=== PATIENT | female | born 1985 | race Caucasian/White ===

== ENCOUNTER 2018-02-18 01:23 | Inpatient (IN) | payer OTHER ==
[2018-02-18] MEDS ORDERED: POLYCILLIN/NS 2 GM/100 ML 2 GM/100 ML BAG IV ONE ×2 (01:32→02:00)
[2018-02-18] MEDS ORDERED: LACTATED RINGERS 1,000 ML ONE (01:32)
[2018-02-18] MEDS ORDERED: SUBLIMAZE ONE (01:32)
[2018-02-18] MEDS ORDERED: SUBLIMAZE IV ONE (01:39)
[2018-02-18] MEDS ORDERED: ZOFRAN IV PRN (01:46)
[2018-02-18] MEDS ORDERED: ePHEDrine SULFATE IV PRN (01:46)
[2018-02-18] MEDS ORDERED: XYLOCAINE 2% INFILTRATI ONE (01:46)
[2018-02-18] MEDS ORDERED: BRETHINE SUB-Q PRN (01:46)
[2018-02-18] MEDS ORDERED: BRETHINE IVP PRN (01:46)
[2018-02-18] MEDS ORDERED: MINERAL OIL PO PRN (01:46)
[2018-02-18] MEDS ORDERED: NARCAN 0.4 MG/1 ML IV PRN (01:46)
--- NOTE | 2018-02-18 01:52 | History and Physical Report ---
History of Present Illness Date of examination: 02/18/18 Date of admission: 02/18/18 01:23 Chief complaint: Intense Labor Pain History of present illness: Early entry to care, course complicated by a abnormal pap ( HGSIL), Anemia, Vitamin D Insufficiency, and 1 UTI (treated with Augmentin). 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 Family/Genetic History: hypertension, cancer Social history: no significant social history, single, smoking (occ smoker) - Obstetrical History Expected Date of Delivery: 03/01/18 Actual Gestation: 38 Week(s) 3 Day(s) : 2 Para: 1 Hx # Term Pregnancies: 1 Number of Living Children: 1 #1 Gender: Male year: 2,009 Birthweight: 3.997 kg Method of Delivery: Vaginal Gestational age at delivery: 40 Complications: none Medications and Allergies Allergies Allergy/AdvReac Type Severity Reaction Status Date / Time No Known Allergies Allergy Unverified 02/18/18 01:38 Active Meds: Active Medications Ampicillin Sodium (Polycillin/Ns 2 Gm/100 Ml) 2 gm in 100 mls @ 100 mls/hr IV ONCE ONE; Protocol Stop: 02/18/18 02:59 Review of Systems All systems: negative - Vital Signs Vital signs: Vital Signs Temp Pulse Resp BP Pulse Ox 97.8 F 60 24 131/66 97 02/18/18 01:25 02/18/18 01:25 02/18/18 01:25 02/18/18 01:25 02/18/18 01:25 Temp Pulse Resp BP Pulse Ox 97.8 F 79 24 131/66 94 02/18/18 01:25 02/18/18 01:50 02/18/18 01:25 02/18/18 01:25 02/18/18 01:50 - Physical Exam Breasts: Positive: normal Cardiovascular: Regular rate Lungs: Positive: Clear to auscultation, Normal air movement Abdomen: Positive: normal appearance, soft, normal bowel sounds Genitourinary (Female): Positive: normal external genitalia, normal perenium Vagina: Positive: normal moisture Uterus: Positive: enlarged Anus/Rectum: Positive: normal perianal skin - Obstetrical FHR: category 1 Uterine Contraction Monitor Mode: External Cervical Dilatation: 8.5 (Small amount of clear fluid upon AROM at 0135) Cervical Effacement Percentage: 90 station: +1 Uterine Contraction Frequency (min): 2 Uterine Contraction Pattern: Regular Uterine Tone Measurement Phase: Resting Uterine Contraction Intensity: Strong/Firm Results All other labs normal. Assessment and Plan A: IUP @ 38 3/7 Weeks Category I Tracing Active Labor GBS Positive P: Admit to L&D per Routine Orders GBS Prophylaxis AROM
[2018-02-18] MEDS ORDERED: LACTATED RINGERS 1,000 ML IV SCH (02:00)
[2018-02-18] MEDS ORDERED: PITOCin/NS 20 UNIT/1000ML DRIP 20 UNITS/1,000 ML BAG IV SCH (02:00)
[2018-02-18] MEDS ORDERED: PITOCin/NS 20 UNIT/1000ML DRIP 20,000 MILLIUNITS/1,000 ML BAG IV ONE (02:06)
[2018-02-18] MEDS ORDERED: MINERAL OIL ONE (02:06)
[2018-02-18 02:21] LABS: Hematocrit 34.1 % (30.3-42.9); Hemoglobin 11.6 gm/dl (10.1-14.3); Mean Corpuscular HGB Conc 34 % (30-34); Mean Corpuscular Hemoglobin 27 pg (28-32); Mean Corpuscular Volume 80 fl (79-97); Platelet Count 241 K/mm3 (140-440); Red Blood Count 4.25 M/mm3 (3.65-5.03); Red Cell Distribution Width 14.8 % (13.2-15.2)
[2018-02-18] MEDS ORDERED: NORCO 5/325 PO PRN (02:29)
[2018-02-18] MEDS ORDERED: BENADRYL PO PRN (02:29)
[2018-02-18] MEDS ORDERED: LANSINOH TP PRN (02:29)
--- NOTE | 2018-02-18 02:35 | Procedure Note ---
OB Delivery Note - Delivery Date of Delivery: 02/18/18 (0213) Surgeon: ADOLFO LATIF Estimated blood loss: 200cc - Vaginal Delivery presentation: vertex Delivery position: OA Intrapartum events: none Delivery induction: none Delivery augmentation: rupture of membranes Delivery monitor: external FHT, external uterine Route of delivery: Delivery placenta: spontaneous Delivery cord: 3 umbilical vessels Episiotomy: none Delivery laceration: none Anesthesia: none Delivery comments: of a live 8'6 female over a intact perineum under IV pain control with Apgars of 8 and 9 at 0213 on 02/18/2018. Infant directly to maternal abd/ chest, skin to skin contact. Spontaneous delivery of placenta complete and intact with Hicks side presenting at 0218. Fundus is firm and midline located 5 below the U. Lochia is scant. Delayed cord clamping and cutting. Cord blood collected. Placenta discarded. GBS Prophylaxis x 1. - A at 1 minute: 8 at 5 minutes: 9 Infant Gender: Female (8'6)
[2018-02-18] MEDS ORDERED: SODIUM CHLORIDE FLUSH SYRINGE 10 ML IV NR (03:00)
[2018-02-18 17:11] LABS: Hematocrit 30.3 % (30.3-42.9); Hemoglobin 10.2 gm/dl (10.1-14.3)
[2018-02-18] MEDS: MOTRIN PO SCH ×2 (18:15→18:16)
--- NOTE | 2018-02-19 08:35 | Progress Note ---
Assessment and Plan - Patient Problems (1) Status post normal vaginal delivery Current Visit: Yes Status: Acute Plan to address problem: PPD 2 - stable Continue routine PP orders Discharge to home in AM 02/20/18 F/U at [facility] in 6 weeks for PP exam Subjective - Subjective Date of service: 02/19/18 Principal diagnosis: s/p Normal Spontaneous Vaginal Delivery Patient reports: appetite normal, voiding normally, pain well controlled, ambulating normally [place]: doing well, bottle feeding Objective - Vital Signs Latest vital signs: Vital Signs Temp Pulse Resp BP Pulse Ox 02/19/18 00:16 98.0 F 66 18 105/58 96 02/18/18 16:30 97.8 F 68 20 105/60 96 02/18/18 11:48 98.1 F 64 18 110/56 96 Intake and Output 02/18/18 02/19/18 02/19/18 23:59 07:59 15:59 Intake Total 120 240 Balance 120 240 Intake: Oral 120 240 Other: Total, Intake Amount 120 120 # Voids Void 1 1 - Exam Cardiovascular: Present: Regular rate, Normal S1, Normal S2, No murmurs Lungs: Present: Clear to auscultation, Normal air movement Abdomen: Present: normal appearance, soft Vulva: both: normal Uterus: Present: normal, firm, fundal height below umbilicus Extremities: Present: normal Deep Tendon Reflex Grade: Normal +2
--- NOTE | 2018-02-19 08:37 | Discharge Summary ---
Providers - Providers Date of Admission: 02/18/18 01:23 Date of discharge: 02/20/18 Attending physician: MELVIN MCCLENDON MD Primary care physician: MELVIN MCCLENDON MD Hospitalization Reason for admission: active labor, IUP at term Delivery: Episiotomy: none Laceration: none Other procedures: none complications: none baby: female Hospital course: Uncomplicated Condition at discharge: Stable Disposition: DC-01 TO HOME OR SELFCARE - Discharge Diagnoses (1) Status post normal vaginal delivery Status: Acute Plan - Provider Discharge Summary Activity: routine, no sex for 6 weeks, no heavy lifting 4 weeks, no strenuous exercise Diet: routine Instructions: routine Additional instructions: [] Smoking cessation referral if applicable(refer to patient education folder for contact #) [] Refer to [facility] Booklet Call your doctor immediately for: * Fever > 100.5 * Heavy vaginal bleeding ( >1 pad per hour) * Severe persistent headache * Shortness of breath * Reddened, hot, painful area to leg or breast * Drainage or odor from incision. * Keep incision clean and dry at all times and follow doctor's instructions regarding bathing/showering - Follow up plan Follow up: MELVIN MCCLENDON MD [Primary Care Provider] - 6 Weeks (Follow-up at [facility] in 6 weeks for PP exam)
[2018-02-19] MEDS: MOTRIN PO SCH (13:35)
[2018-02-20] MEDS: MOTRIN PO SCH (06:04)
[2018-02-20 17:56] VITALS: BP 124/60
== END 2018-02-20 17:00 | disposition home or self-care (01) | DRG 775 ==
LOC: LD 01:23 → OB 04:16
PROVIDERS: ADMIT Obstetrics & Gynecology; ATTEND Obstetrics & Gynecology
PROC: 10E0XZZ Delivery of Products of Conception, External Approach (ICD-10-PCS; principal; 2018-02-18)
DX: O99.824 Streptococcus B carrier state complicating childbirth (principal); Z3A.38 38 weeks gestation of pregnancy; Z37.0 Single live birth; Z82.49 Family history of ischemic heart disease and other diseases of the circulatory system
CPT/HCPCS: 36415; 85014; 85018; 85027; 86592; 86850; 86900; 86901; 99211; G0463; J0290; J2590; J3010; J7120

== ENCOUNTER 2019-12-26 09:04 | Inpatient (IN) | payer SELFPAY ==
[2019-12-26] MEDS ORDERED: ePHEDrine SULFATE 50 MG/1 ML INJ IV PRN (09:50)
[2019-12-26] MEDS ORDERED: LIDOCAINE (2%) 20 MG/1 ML VIAL 20 ML MDV INFILTRATI ONE (09:50)
[2019-12-26] MEDS ORDERED: TERBUTALINE 1 MG/1 ML INJ IVP PRN (09:50)
[2019-12-26] MEDS ORDERED: TERBUTALINE 1 MG/1 ML INJ SUB-Q PRN (09:50)
[2019-12-26] MEDS ORDERED: MINERAL OIL 30 ML ORAL LIQD PO PRN (09:50)
[2019-12-26] MEDS ORDERED: fentaNYL 100 MCG/2 ML INJ IV PRN (09:50)
--- NOTE | 2019-12-26 09:59 | History and Physical Report ---
History of Present Illness Date of examination: 12/26/19 Date of admission: 12/26/19 Chief complaint: Contractions History of present illness: 34yo G 3 P 2 0 0 2 @ 40 weeks 6 days here with c/o UCs q5mins since 6am. She reports +FMs but denies VB or LOF. She is a [facility] patient who initiayted care at 15 weeks gestation. Her course is complicated by late entry to care and AMA. LABS: O pos, Antibody Screen neg, Pap Smear ASCUS/neg HPV, RI, VDRL NR, HBsAg neg, HIV neg, MSAFP neg, Diabetes Screen 157, 3hr GTT 99/150/141/115, GC/CT neg, GBS neg. 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 (08/10/17-FARSHAD I; 06/16/19-ASCUS/neg HPV) Family/Genetic History: hypertension (aunt), cancer (breast(aunt,mother); brain(uncle)) - Obstetrical History Expected Date of Delivery: 12/20/19 Actual Gestation: 40 Week(s) 6 Day(s) : 3 Para: 2 Hx # Term Pregnancies: 2 Number of Pregnancies: 0 Spontaneous Abortions: 0 Induced : 0 Number of Living Children: 2 #1 Gender: Male year: 2,[birth year] (11/14/2009) Birthweight: 3.997 kg (8 lbs 13 oz) Method of Delivery: Vaginal Gestational age at delivery: 40 Complications: none #2 Infant Gender: Female year: 2,[birth year] (02/24/2019) Birthweight: 3.799 kg (8 lbs 6 oz) Method of Delivery: Vaginal Gestational age at delivery: 38 Complications: none Medications and Allergies Allergies Allergy/AdvReac Type Severity Reaction Status Date / Time No Known Allergies Allergy Unverified 02/18/18 01:38 Home Medications Medication Instructions Recorded Confirmed Last Taken Type No Known Home Medications [No 02/18/18 02/18/18 Unknown History Reported Home Medications] Review of Systems All systems: negative - Vital Signs Vital signs: Vital Signs Pulse BP Pulse Ox 77 120/67 99 12/26/19 09:16 12/26/19 09:16 12/26/19 09:16 Temp Pulse Resp BP Pulse Ox 97.3 F L 60 22 120/67 97 12/26/19 09:26 12/26/19 09:36 12/26/19 09:26 12/26/19 09:16 12/26/19 09:36 - Obstetrical FHR: auscultation normal, category 1 Uterine Contraction Monitor Mode: Palpation Cervical Dilatation: 7 (per RN) Cervical Effacement Percentage: 80 (per RN) station: 0(per RN) Uterine Contraction Pattern: Regular Results Result Diagrams: 12/26/19 09:50 All other labs normal. Assessment and Plan - Patient Problems (1) 40 weeks gestation of Current Visit: Yes Status: Acute (2) Active labor at term Current Visit: Yes Status: Acute Plan to address problem: Admit to L&D with routine labor orders Anticipate vaginal delivery
[2019-12-26] MEDS ORDERED: LACTATED RINGERS 1,000 ML IV SCH (10:00)
[2019-12-26 10:07] LABS: Hematocrit 33.7 % (30.3-42.9); Hemoglobin 10.9 gm/dl (10.1-14.3); Mean Corpuscular HGB Conc 32 % (30-34); Mean Corpuscular Volume 81 fl (79-97); Platelet Count 237 K/mm3 (140-440); Red Blood Count 4.19 M/mm3 (3.65-5.03); Red Cell Distribution Width 14.8 % (13.2-15.2)
[2019-12-26] MEDS: OXYTOCIN 20 UNIT/1000ML DRIP 20 UNITS/1,000 ML BAG IV SCH ×2 (12:07→13:31)
--- NOTE | 2019-12-26 12:22 | Procedure Note ---
OB Delivery Note - Delivery Date of Delivery: 12/26/19 (12:04) Surgeon: JUSTICE HUGHES (CNM) Estimated blood loss: other (150cc) - Vaginal Delivery presentation: vertex Delivery position: OA Intrapartum events: meconium Delivery induction: none Delivery augmentation: rupture of membranes (AROM @ 10:38) Delivery monitor: external FHT, external uterine Route of delivery: (12:04) Delivery placenta: spontaneous (12:07) Delivery cord: nuchal cord (CAN x1-reduced after delivery of head), 3 umbilical vessels Delivery laceration: 1st degree (perineal-hemostatic and left unrepaired) Anesthesia: intravenous Delivery comments: of a less vigorous term 9 lbs 10 oz female on 12/26/19 @ 12:04. Umbilical cord double-clamped and cut and baby taken to radiant warmer by NICU team personnel. Cord blood collected per protocol. Spontaneous delivery of placenta, Christy-side presenting @ 12:07. Fundal massage and IV Pitocin bolus initiated. Lochia initially moderate but scant after massage. 1st degree perineal laceration noted and hemostatic so left unrepaired. Placenta intact;was discarded. Mom and baby instable condition. - A at 1 minute: 8 at 5 minutes: 9 Gender: Female (9 lbs 10 oz (4366 gm); 20 in)
[2019-12-26] MEDS ORDERED: ONDANSETRON 4 MG/2 ML INJ IV PRN (12:26)
[2019-12-26] MEDS ORDERED: HYDROcodone/ACETAMINOPHEN 5-325 MG TAB PO PRN (12:26)
[2019-12-26] MEDS ORDERED: diphenhydrAMINE 25 MG CAP PO PRN (12:26)
[2019-12-26] MEDS ORDERED: ACETAMINOPHEN 325 MG TAB PO PRN (12:26)
[2019-12-26] MEDS ORDERED: PROMETHAZINE 25 MG TAB PO PRN (12:26)
[2019-12-26] MEDS ORDERED: WITCH HAZEL/ GLYCERIN PAD TP PRN (12:26)
[2019-12-26] MEDS ORDERED: MAGNESIUM HYDROXIDE (MOM) ORAL LIQD UDC PO PRN (12:26)
[2019-12-26] MEDS ORDERED: LANOLIN/ZINC/DIMETHICONE (LANSINOH) 7 GM TP PRN (12:26)
[2019-12-26] MEDS ORDERED: PROMETHAZINE 25 MG RECT SUPP PR PRN (12:26)
[2019-12-26] MEDS ORDERED: IBUPROFEN 600 MG TAB PO SCH (13:00)
[2019-12-27] MEDS: guaiFENesin 100 MG/5 ML ORAL LIQD PO PRN ×2 (01:10→10:33)
[2019-12-27] MEDS ORDERED: PRENATAL VIT27-FE FUMARATE-FOLIC ACID VIT TAB PO SCH (10:00)
--- NOTE | 2019-12-27 10:06 | Progress Note ---
Assessment and Plan - Patient Problems (1) Status post normal vaginal delivery Current Visit: No Status: Acute Plan to address problem: D/C today if H/H stable F/U at office in 6 wks for routine PP visit (2) Anemia Current Visit: Yes Status: Acute Qualifiers: Anemia type: iron deficiency Plan to address problem: Asymptomatic Repeat H/H Increase iron rich foods into diet Subjective - Subjective Date of service: 12/27/19 Principal diagnosis: ; PPD#1 Interval history: See admission H & P; OB delivery summary and PP progress notes Patient reports: appetite normal, voiding normally, pain well controlled, flatus, ambulating normally, other (States she would like to go home today if possible) : doing well, bottle feeding (and ) Objective - Vital Signs Latest vital signs: Vital Signs Temp Pulse Resp BP BP Pulse Ox 12/27/19 08:02 97.7 F 69 18 111/66 97 12/27/19 00:01 98.3 F 75 20 108/60 97 12/26/19 20:34 98.2 F 65 18 110/56 97 12/26/19 17:39 20 12/26/19 16:27 98.5 F 74 20 110/55 94 12/26/19 13:38 98.6 F 60 20 106/55 98 12/26/19 13:20 97.4 F L 20 12/26/19 13:15 70 99/55 12/26/19 13:00 72 102/53 12/26/19 12:45 74 106/55 12/26/19 12:27 75 103/54 12/26/19 12:25 97.4 F L 20 12/26/19 12:22 80 96/52 12/26/19 12:17 73 107/56 12/26/19 12:12 79 116/59 12/26/19 12:09 97.4 F L 20 12/26/19 12:08 67 118/57 12/26/19 11:58 75 122/58 12/26/19 11:36 97.4 F L 20 12/26/19 11:28 68 118/56 12/26/19 10:58 65 119/57 12/26/19 10:28 67 121/67 Intake and Output 12/26/19 12/27/19 12/27/19 23:59 07:59 15:59 Intake Total 360 480 Output Total 800 800 Balance -440 -320 Intake: Oral 240 Intake, Free Water 120 480 Output: Urine 800 800 Void 800 800 Other: Total, Intake Amount 240 Total, Output Amount 200 800 # Voids Void 1 1 - Exam Breasts: Present: normal Cardiovascular: Present: Regular rate Lungs: Present: Normal air movement Abdomen: Present: soft Uterus: Present: firm, fundal height at umbilicus Extremities: Present: normal Deep Tendon Reflex Grade: Normal +2 Incision: Present: other (1st degree perineal laceration, healing as expected) - Labs Labs: Abnormal lab results 12/26/19 Range/Units 09:50 MCH 26 L (28-32) pg
--- NOTE | 2019-12-27 10:17 | Discharge Summary ---
Providers - Providers Date of Admission: 12/26/19 09:05 Date of discharge: 12/27/19 (1400) Attending physician: MARYURI FRANKEL MD Primary care physician: MARYURI FRANKEL MD Hospitalization Reason for admission: active labor, IUP at term Delivery: Episiotomy: none Laceration: 1st degree (healing as expected) Other procedures: none complications: none Discharge diagnosis: IUP at term delivered, other (anemia) [place] baby: female Hospital course: See admission H & P; OB delivery summary and PP progress notes Condition at discharge: Good Disposition: DC-01 TO HOME OR SELFCARE - Discharge Diagnoses (1) Status post normal vaginal delivery Status: Acute (2) Anemia Status: Acute Qualifiers: Anemia type: iron deficiency Plan - Discharge Medications Prescriptions: Ferrous Sulfate [Feosol 325 MG tab] 325 mg PO QDAY 30 Days #30 tablet - Provider Discharge Summary Activity: routine, no sex for 6 weeks, no heavy lifting 4 weeks, no strenuous exercise Diet: other (Iron rich diet) Instructions: routine Additional instructions: [] Smoking cessation referral if applicable(refer to patient education folder for contact #) [] Refer to [facility] Booklet Call your doctor immediately for: * Fever > 100.5 * Heavy vaginal bleeding ( >1 pad per hour) * Severe persistent headache * Shortness of breath * Reddened, hot, painful area to leg or breast * Drainage or odor from incision. * Keep laceration clean and dry at all times and follow doctor's instructions regarding bathing/showering - Follow up plan Follow up: MARYURI FRANKEL MD [Primary Care Provider] - 6 Weeks
[2019-12-27 11:04] LABS: Hemoglobin 9.7 gm/dl (10.1-14.3)
[2019-12-27 17:52] VITALS: BP 106/47
[2019-12-28] MEDS ORDERED: FERROUS SULFATE 325 MG TAB PO SCH (10:00)
== END 2019-12-27 16:20 | disposition home or self-care (01) | DRG 807 ==
LOC: TRG 09:04 → LD 09:05 → OB 14:29
PROVIDERS: ADMIT Obstetrics & Gynecology; ATTEND Obstetrics & Gynecology
PROC: 10E0XZZ Delivery of Products of Conception, External Approach (ICD-10-PCS; principal; 2019-12-26)
DX: O77.0 Labor and delivery complicated by meconium in amniotic fluid (principal); Z37.0 Single live birth; O69.81X0 Labor and delivery complicated by cord around neck, without compression, not applicable or unspecified; O70.0 First degree perineal laceration during delivery; O90.81 Anemia of the puerperium; D50.9 Iron deficiency anemia, unspecified; Z3A.40 40 weeks gestation of pregnancy; Z82.49 Family history of ischemic heart disease and other diseases of the circulatory system; Z80.3 Family history of malignant neoplasm of breast; Z80.8 Family history of malignant neoplasm of other organs or systems
CPT/HCPCS: 36415; 85014; 85018; 85027; 86592; 86850; 86900; 86901; G0378; A6250; J2590; J3010; J7120